=== PATIENT | male | born 1955 | race Caucasian/White ===

== ENCOUNTER 2019-06-07 12:06 | Outpatient (CLI) | payer SELFPAY ==
[2019-06-07 13:03] LABS: Hematocrit 52.4 % (42.0-52.0); Hemoglobin 17.7 g/dL (14.0-18.0)
[2019-06-07 13:07] LABS: Add Urine Microscopic? YES; Appearance Urine Clear (Clear); Bilirubin Urine Negative (Negative); Blood Urine Negative (Negative); Color Urine Yellow (Yellow); Glucose Urine UA Negative (Negative); Ketones Urine Negative (Negative); Leukocyte Esterase Ur Negative LEU/UL (NEGATIVE); Mucus Urine Rare /lpf; Nitrate Urine Negative (Negative); Protein Urine Negative (Negative); RBC Urine 0-2 /hpf (0-2); Urobilinogen Urine Negative mg/dL (<2.0); WBC Urine 0-3 /hpf (0-3)
[2019-06-07 13:17] LABS: Blood Urea Nitrogen 26 mg/dL (9-20); Carbon Dioxide 25 mmol/L (22-30); Chloride 101 mmol/L (98-107); Estimated Glomerular Filt Rate 41; Glucose 108 mg/dL (75-110); Sodium 141 mmol/L (137-145)
[2019-06-07 13:49] LABS: Prostate Specific Antigen 2.2 ng/mL (< OR = 4.0)
[2019-06-10 11:10] LABS: Testosterone Total 887 ng/dL (250-1100)
[2019-06-13 20:02] LABS: Estradiol, Ultrasensitive 65 pg/mL (< OR = 29)
== END 2019-06-07 12:07 | disposition home or self-care (01) ==
PROVIDERS: Visit Provider Nurse Practitioner Adult Health
DX: E29.1 Testicular hypofunction (principal)
CPT/HCPCS: 36415; 80048; 81001; 82670; 84153; 84403; 85014; 85018